=== PATIENT | female | born 2000 | race Caucasian/White ===

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

== ENCOUNTER 2024-12-12 09:09 | Emergency (ER) | payer MEDICAID ==
[~2024-12-12] VITALS: Ht 154.9 cm; Wt 81.8 kg
[2024-12-12 09:15] VITALS: BP 109/72; PULSE 98; RESP 16; O2SAT 97
[2024-12-12 10:41] VITALS: TEMP 97
== END 2024-12-12 10:45 | disposition home or self-care (01) ==
LOC: ER 09:10
DX: S92.212A Displaced fracture of cuboid bone of left foot, initial encounter for closed fracture (principal); S90.32XA Contusion of left foot, initial encounter; Z79.1 Long term (current) use of non-steroidal anti-inflammatories (NSAID); Z79.899 Other long term (current) drug therapy; Z72.89 Other problems related to lifestyle; X58.XXXA Exposure to other specified factors, initial encounter; Y93.89 Activity, other specified; Y92.89 Other specified places as the place of occurrence of the external cause; Y99.8 Other external cause status
CPT/HCPCS: 73610; 73630; 99284; L4360